=== PATIENT | male | born 1955 | race Asian ===

== ENCOUNTER 2017-08-08 12:54 | Day surgery (SDC) | payer OTHER ==
[~2017-08-08] VITALS: Ht 170.2 cm; Wt 69.3 kg
[2017-08-08 13:26] VITALS: Ht 170.2 cm; Wt 69.3 kg
[2017-08-08] MEDS ORDERED: CLOP300T15 PO (13:37)
[2017-08-08] MEDS ORDERED: RANO500T2 PO (13:37)
[2017-08-08] MEDS ORDERED: SERT25TA PO (13:37)
[2017-08-08] MEDS ORDERED: CARV3.1260 PO (13:37)
[2017-08-08] MEDS ORDERED: ASPI325T4 PO (13:37)
[2017-08-08] MEDS ORDERED: LOSA25TA5 PO (13:37)
[2017-08-08] MEDS ORDERED: ISM20 PO (13:37)
[2017-08-08] MEDS ORDERED: ATOR40TA68 PO (13:37)
[2017-08-08] MEDS ORDERED: AMLO2.5T78 PO (13:37)
[2017-08-08] MEDS ORDERED: NIAC50TA3 PO (13:37)
[2017-08-08 13:38] VITALS: BP 130/80; PULSE 70; RESP 16
[2017-08-08] MEDS ORDERED: LIDOCAINE 2% (SDV) 5 ML INJ ONE (14:23)
[2017-08-08] MEDS ORDERED: PROPOFOL 40 ML ONE (14:23)
[2017-08-08] MEDS ORDERED: PHENYLephrine (100 MCG/ML) 5ML SYG ONE (15:22)
[2017-08-08] MEDS ORDERED: PROPOFOL 20 ML ONE (15:22)
--- NOTE | 2017-08-08 15:38 | OPPN ---
Date/Time of Note Date/Time of Note DATE: 08/08/17 TIME: 15:37 Operative Report Preoperative Diagnosis Screening Postoperative Diagnosis Small right colon polyp was removed Internal hemorrhoids Operation/Procedure Performed Colonoscopy and biopsy Surgeon see signature line assistance specialist None Anesthesia: MAC Estimated blood loss: none Transfusion Required none Specimen Colon polyp Grafts/Implants none Complications none BELINDA DONALD MD Aug 08, 2017 15:38
--- NOTE | 2017-08-08 16:40 | GILP ---
DATE OF PROCEDURE: 08/08/2017 PROCEDURE PERFORMED: Colonoscopy and biopsy. SURGEON: Jewel Williamson MD PREOPERATIVE DIAGNOSIS: Screening colonoscopy. POSTOPERATIVE DIAGNOSES: 1. Colonoscopy all the way to the cecum. 2. Small right colon polyp was removed. 3. Internal hemorrhoids. INDICATIONS FOR PROCEDURE: Mr. Terry Mendez is a 61-year-old male patient who was scheduled for screening colonoscopy. The procedure and possible complications were well explained to the patient. He understood and consented to the procedure. DESCRIPTION OF PROCEDURE: Under influence of anesthesia, the colonoscope was carefully introduced in the rectum. Under direct vision, it was advanced all the way to the cecum. Findings, the patient had a small right colon polyp and it was removed using biopsy forceps. He had internal hemorrhoids. He tolerated the procedure very well, and there was no complication from the procedure. At the end of procedure, he was awake with stable vital signs and he was discharged home in the care of his family. IMPRESSION: 1. Colonoscopy all the way to the cecum. 2. Small right colon polyp was removed with biopsy forceps. 3. Internal hemorrhoids. PLAN: Next screening colonoscopy in 5 years. Dictated By: MD CATRACHITA Duncan/theresa/anjelica /Document#: [id number]
== END 2017-08-08 16:41 | disposition home or self-care (01) ==
LOC: GIL 12:54
PROVIDERS: ATTEND Internal Medicine Gastroenterology
DX: Z12.11 Encounter for screening for malignant neoplasm of colon (principal); K63.5 Polyp of colon; K64.8 Other hemorrhoids; I25.10 Atherosclerotic heart disease of native coronary artery without angina pectoris; I10 Essential (primary) hypertension; E78.5 Hyperlipidemia, unspecified; F32.9 Major depressive disorder, single episode, unspecified
CPT/HCPCS: 45380; 88305; J2370; Z7610